=== PATIENT | male | born 1985 | race Caucasian/White ===

== ENCOUNTER 2016-12-21 16:14 | Observation (INO) ==
--- NOTE | 2016-12-21 18:36 | Emergency Department Note ---
Disposition Clinical Impression: Appendicitis Qualifiers: Appendicitis type: acute appendicitis Acute appendicitis type: unspecified acute appendicitis type Qualified Code(s): K35.80 - Unspecified acute appendicitis Disposition: Admitted As Inpatient Condition: Fair Referrals: NONE,PCP [Primary Care Provider] - Forms: ED Satisfaction Letter Time of Disposition: 20:00 General Adult HPI - General Chief complaint: ED Nausea/Vomiting/Diarrhea Stated complaint: Flu symptoms Time Seen by Provider: 12/21/16 18:35 Source: patient Limitations: no limitations Nursing Notes Reviewed: Yes Vital Signs Reviewed: Yes - History of Present Illness HPI Narrative: 31-year-old male no medical history presents with about 12 hours of nausea vomiting, abdominal discomfort. 6 out of 10 aching, right lower quadrant pain. Patient denies any cough congestion or upper respiratory symptoms. States that he feels like he has the flu, has myalgias diffusely. He states that he has multiple sick contacts that he is exposed to [employer] where he lives Onset (ago): hour(s) Radiation: abdomen Pain Severity: moderate Pain Scale: 6 Quality: aching Consistency: intermittent Improves with: nothing Worsens with: nothing Associated symptoms: Reports: loss of appetite, nausea/vomiting. Denies: confusion, chest pain, cough - Related Data Home Medications Medication Instructions Recorded Confirmed No Known Home Drugs 12/21/16 12/21/16 Allergies Allergy/AdvReac Type Severity Reaction Status Date / Time No Known Allergies Allergy Verified 12/21/16 16:43 All systems ED: reviewed and negative except as stated. Review of Systems: As Per HPI Constitutional: Reports: chills. Denies: fever Respiratory: Denies: cough, dyspnea Gastrointestinal: Reports: as per HPI, abdominal pain, nausea, vomiting. Denies : diarrhea, constipation, hematemesis Genitourinary: Denies: urgency, dysuria Musculoskeletal: Denies: back pain, neck pain Integumentary: Denies: rash Neurological: Denies: headache Psychiatric: Denies: anxiety Endocrine: Denies: fatigue Past Medical History - Past Medical History Attestation: Yes The following information was validated with the patient. Source: patient Medical history: Reports: no medical history - Social History Smoking Status: Never smoker Smokeless Tobacco Status: No Alcohol use: Reports: none Drug use: Reports: none Physical Exam Constitutional: NAD, vital signs reviewed and wnl Eyes: PERRLA, sclera anicteric ENT & Mouth: NCAT, normal external ears bilaterally, MMM Neck: normal inspection, neck is supple Resp: CTA bilaterally, no resp distress CV: RRR, no m/g/r GI: normal inspection moderate RLQ ttp, positive tenderness in McBurney's point , positive rebound. Rovsing sign, no guarding or rigidity Back: normal inspection, no tenderness to palpation Neuro: A&O3, CNII-XII grossly intact, BRADLEY MSK: no gross deformities, normal ROM UE and LE Skin: on limited exam, skin intact with no rashes or lesions - General Limitations: no limitations General appearance: alert Course Course Narrative: 31-year-old male with right lower quadrant pain nausea vomiting, CT scan noncontrast basic lab work IV fluids Zofran and Toradol reassess. - Reevaluation(s) Reevaluation #1: Abdominal CT demonstrates early appendicitis with 8mm appendix with appendicolith, paging Dr tabares. Reevaluation #2: Spoke with Dr. Tabares, he wants to be called back when the lab work comes back in I did express that the patient has exam significant for acute appendicitis with right lower quadrant tenderness to palpation. Mcburney's point tenderness and rebound tenderness. Time: 19:43 Reevaluation #3: I spoke again with Dr. Tabares, given no leukocytosis, he thinks still equivocal for appendicitis will admit started on IV Mefoxin nothing by mouth, patient to be admitted to surgical service for observation to see if he progresses, and not directly to OR. Time: 20:00 Vital Signs Temperature 98.1 F 12/21/16 16:41 Pulse Rate 51 12/21/16 16:41 Respiratory Rate 18 12/21/16 16:41 Blood Pressure 129/79 12/21/16 16:41 O2 Sat by Pulse Oximetry 97 12/21/16 16:41 Temperature 98.1 F 12/21/16 16:41 Pulse Rate 51 12/21/16 16:41 Respiratory Rate 18 12/21/16 16:41 Blood Pressure 129/79 12/21/16 16:41 O2 Sat by Pulse Oximetry 97 12/21/16 16:41 Medical Decision Making - [facility] Narrative Medical decision making narrative: 31-year-old male with right lower quadrant pain nausea vomiting anorexia, early appendicitis on CT scan right lower quadrant pain with rebound on physical exam , admitted to Dr. Tabares in stable condition, white count was not elevated, patient was placed nothing by mouth and given Mefoxin - Medical Records Medical records reviewed: Yes I reviewed the patient's medical records. - Lab Data Lab results reviewed: Yes I reviewed the patient's lab results. Result diagrams: 12/21/16 19:26 12/21/16 19:26 Lab Results 12/21/16 12/21/16 Range/Units 19:26 19:26 WBC 9.3 (4.3-11.1) K/mcL RBC 5.25 (4.19-5.50) M/mcL Hgb 14.5 (12.9-16.9) g/dL Hct 43.0 (37.5-50.1) % MCV 81.9 L (83.0-100.0) fL MCH 27.6 L (28.0-33.3) pg MCHC 33.7 (31.6-35.5) g/dL RDW 12.0 (11.5-14.5) % Plt Count 167 (140-400) K/mcL MPV 9.8 (9.4-12.4) fL Immature Gran % 0.4 (0-4) % Seg Neutrophils % 82.5 % Lymphocytes % 13.0 % Monocytes % 3.7 % Eosinophils % 0.2 % Basophils % 0.2 % Neutrophils # 7.7 (1.6-8.9) K/mcL Lymphocytes # 1.2 (0.6-4.6) K/mcL Monocytes # 0.3 (0.0-1.3) K/mcL Eosinophils # 0.0 (0.0-0.6) K/mcL Basophils # 0.0 (0.0-0.2) K/mcL Sodium 141 (136-145) mEq/L Potassium 3.7 (3.5-4.5) mEq/L Chloride 105 (98-109) mEq/L Carbon Dioxide 25 (19-29) mEq/L BUN 14 (8-26) mg/dL Creatinine 0.97 (0.72-1.25) mg/dL Est GFR ( Amer) > 60 (> 60) Est GFR (Non-Af Amer) > 60 (> 60) BUN/Creatinine Ratio 14 (6-26) Glucose 108 H (70-99) mg/dL Calculated Osmolality 293 (280-300) Calcium 10.3 (8.6-10.8) mg/dL - Radiology Data Radiology results reviewed: Yes I reviewed the patient's radiology results. Abdomen/Pelvis CT 12/21/16 18:44 IMPRESSION: Equivocal for acute appendicitis. There is an appendicolith associated with mild dilation of the appendix. This may indicate acute appendicitis in the appropriate clinical presentation. Nonobstructive nephrolithiasis. Punctate small caliceal calculi noted bilaterally. D/ / Evangelist Arteaga MD / Evangelist Arteaga MD Interpreting Provider: Evangelist Arteaga MD
[2016-12-21] MEDS ORDERED: 0.9 % Sodium Chloride 1,000 ML IVC ONE (18:44)
[2016-12-21] MEDS ORDERED: Ketorolac 15 MG/ML VIAL IVP ONE (19:13)
[2016-12-21] MEDS ORDERED: Ondansetron 4 MG/2 ML VIAL IVP ONE ×2 (19:13→20:45)
--- NOTE | 2016-12-21 19:14 | Emergency Department Note ---
START Narrative - START START: I examined this patient and my medical decision-making was reviewed with the ROTARY SLICING MACHINE OPERATOR/PA/Advanced Practice Nurse/Resident Physician. I agree with the documented findings, disposition and treatment plan as described except to the extent set forth below. ED attending note: I saw this Patient with the emergency medicine resident Dr. Arias. Please see a copy of his note for details of the H&P, evaluation, management and disposition of this emergency Department patient. We independently had [id number] contact with the patient. Briefly: A 31-year-old male [facility] presents with what was initially flu symptoms but had right lower quadrant pain on physical examination labs and CT to exclude possibility of appendicitis. Getting IV fluids for his recurrent nausea episodes. Disposition pending
[2016-12-21 19:41] LABS: Basophils % 0.2 %; Eosinophils % 0.2 %; Hemoglobin 14.5 g/dL (12.9-16.9); Immature Granulocytes % 0.4 % (0-4); Lymphocytes # 1.2 K/mcL (0.6-4.6); Mean Corpuscular HGB Conc 33.7 g/dL (31.6-35.5); Mean Corpuscular Hemoglobin 27.6 pg (28.0-33.3); Mean Corpuscular Volume 81.9 fL (83.0-100.0); Mean Platelet Volume 9.8 fL (9.4-12.4); Monocytes # 0.3 K/mcL (0.0-1.3); Monocytes % 3.7 %; Neutrophils # 7.7 K/mcL (1.6-8.9); Platelet Count 167 K/mcL (140-400); Red Blood Count 5.25 M/mcL (4.19-5.50); Segmented Neutrophils % 82.5 %
[2016-12-21 19:53] LABS: BUN/Creatinine Ratio 14 (6-26); Blood Urea Nitrogen 14 mg/dL (8-26); Calcium 10.3 mg/dL (8.6-10.8); Carbon Dioxide 25 mEq/L (19-29); Chloride 105 mEq/L (98-109); Glucose 108 mg/dL (70-99); Osmolality,Calculated 293 (280-300); Potassium 3.7 mEq/L (3.5-4.5); Sodium 141 mEq/L (136-145); eGFR For African Americans > 60 (> 60); eGFR For Non-African Americans > 60 (> 60)
[2016-12-21] MEDS ORDERED: cefOXitin 2,000 MG in D5% in Water (Mini-Bag+) 100 ML IVPB ONE (19:58)
[2016-12-21] MEDS ORDERED: *HR* Morphine 2 MG/ML SYRINGE IVP ONE (20:45)
[2016-12-21] MEDS ORDERED: *HR* OxyCODONE/APAP 5/325 TABLET PO PRN (21:55)
[2016-12-21] MEDS: 0.9 % Sodium Chloride 1,000 ML IVC SCH (22:13)
[2016-12-22] MEDS ORDERED: cefOXitin 2,000 MG in D5% in Water (Mini-Bag+) 100 ML IVPB SCH
[2016-12-22] MEDS: *HR* HYDROmorphone (PF) 1 MG/ML SYRINGE IVP PRN ×7 (02:06→21:16)
[2016-12-22 02:25] LABS: BUN/Creatinine Ratio 17 (6-26); Blood Urea Nitrogen 15 mg/dL (8-26); Calcium 9.1 mg/dL (8.6-10.8); Carbon Dioxide 23 mEq/L (19-29); Chloride 107 mEq/L (98-109); Glucose 100 mg/dL (70-99); Osmolality,Calculated 289 (280-300); Potassium 3.8 mEq/L (3.5-4.5); Sodium 139 mEq/L (136-145); eGFR For African Americans > 60 (> 60); eGFR For Non-African Americans > 60 (> 60)
[2016-12-22 03:11] LABS: Basophils % 0.4 %; Eosinophils # 0.1 K/mcL (0.0-0.6); Eosinophils % 0.8 %; Hematocrit 39.2 % (37.5-50.1); Hemoglobin 13.5 g/dL (12.9-16.9); Immature Granulocytes % 0.4 % (0-4); Lymphocytes # 2.4 K/mcL (0.6-4.6); Lymphocytes % 28.7 %; Mean Corpuscular HGB Conc 34.4 g/dL (31.6-35.5); Mean Corpuscular Hemoglobin 28.1 pg (28.0-33.3); Mean Corpuscular Volume 81.7 fL (83.0-100.0); Mean Platelet Volume 9.9 fL (9.4-12.4); Monocytes # 0.7 K/mcL (0.0-1.3); Monocytes % 8.5 %; Neutrophils # 5.2 K/mcL (1.6-8.9); Platelet Count 141 K/mcL (140-400); Red Cell Distribution Width 12.1 % (11.5-14.5); Segmented Neutrophils % 61.2 %
[2016-12-22] MEDS: cefOXitin 2,000 MG in D5% in Water (Mini-Bag+) 100 ML IVPB SCH ×3 (04:13→21:17)
[2016-12-22] MEDS: 0.9 % Sodium Chloride 1,000 ML IVC SCH ×2 (05:20→21:17)
[2016-12-22] MEDS: Ondansetron 4 MG/2 ML VIAL IVP PRN ×2 (07:58→15:00)
--- NOTE | 2016-12-22 10:15 | General Surg History&Physical ---
<Surinder Archer - Last Filed: 12/22/16 13:39> Date of Encounter: 12/22/16 Time of Encounter: 06:30 Assessment and Plan (1) Appendicitis Current Visit: Yes Status: Acute Physical exam is concerning for appendicitis Labs, including WBC are not Imaging is equivocal Given the option between antibiotics w/ observation and surgery, the patient preferred surgery to prevent future episodes from occurring Patient has been on Cefoxitin Patient has been placed NPO Written consent obtained Plan is for surgery this afternoon The assessment and plan as outlined above was discussed with the patient and/or family members who expressed understanding and agreement. All questions were answered. Qualifiers: Appendicitis type: acute appendicitis Acute appendicitis type: unspecified acute appendicitis type Qualified Code(s): K35.80 - Unspecified acute appendicitis History of Present Illness Chief complaint: Abdominal pain HPI: Mr. Taylor is a pleasant 31 year old male who presented to [facility] with 1 day of "flu symptoms." He endorses vomiting and diarrhea numerous times throughout the day. He also complains of significant nausea, back pain, and abdominal pain. The abdominal pain started low in intensity and progressed to a 7-8 out of 10. He describes the pain as sharp in quality and located in the RLQ. He denies anorexia, fever, chills, and night sweats. Past Med Surg Social Fam HX - Past Medical History Medical history: no medical history - Social History Smoking Status: Never smoker Smokeless Tobacco Status: No Alcohol use: none Drug use: none Medications and Allergies Amoxicillin/Clavulanate [Augmentin] 875 mg PO BIDWM #14 tablet 12/22/16 [Rx] Docusate Sodium [Colace] 100 mg PO BID #30 capsule 12/22/16 [Rx] Oxycodone HCl/Acetaminophen [Percocet 5-325 mg Tablet] 1 each PO Q6H #30 tablet 12/22/16 [Rx] Allergies No Known Allergies Allergy (Verified 12/21/16 16:43) Review of Systems All systems PM: A 10-system review of systems was performed and is negative for pertinent findings except as documented above in the HPI. - Constitutional no anorexia, no chills, no fever(s), no night sweats - Gastrointestinal abdominal pain (RLQ), diarrhea, vomiting, no hematochezia, no melena General Surgery Exam Initial Vital Signs Temp Pulse Resp BP Pulse Ox 98.1 F 51 18 129/79 97 12/21/16 16:41 12/21/16 16:41 12/21/16 16:41 12/21/16 16:41 12/21/16 16:41 - General physical appearance well developed, well nourished, no distress, moderate pain - Eyes normal ocular movement - ENT atraumatic, normocephalic - Neck trachea midline - Respiratory normal expansion, normal respiratory effort, clear to auscultation - Cardiovascular Cardiovascular exam: Present: RRR - Abdomen Abdomen general surgery: Present: bowel sounds present (hypoactive), soft, tender. Absent: guarding, rebound Abdominal Tenderness: Present: RLQ - Integumentary Integumentary general surgery: Present: warm and dry - Psychiatric Psychiatric general surgery: Present: speech is normal - Additional Findings Rovsing Test Positive Obturator Test Positive Results - Labs 12/22/16 02:57 12/22/16 02:07 Abnormal lab results MCV 81.7 fL (83.0-100.0) L 12/22/16 02:57 Glucose 100 mg/dL (70-99) H 12/22/16 02:07 Diabetes panel 12/22/16 Range/Units 02:07 Sodium 139 (136-145) mEq/L Potassium 3.8 (3.5-4.5) mEq/L Chloride 107 (98-109) mEq/L Carbon Dioxide 23 (19-29) mEq/L BUN 15 (8-26) mg/dL Creatinine 0.88 (0.72-1.25) mg/dL Glucose 100 H (70-99) mg/dL Calcium 9.1 (8.6-10.8) mg/dL Calcium panel 12/22/16 Range/Units 02:07 Calcium 9.1 (8.6-10.8) mg/dL Pituitary panel 12/22/16 Range/Units 02:07 Sodium 139 (136-145) mEq/L Potassium 3.8 (3.5-4.5) mEq/L Chloride 107 (98-109) mEq/L Carbon Dioxide 23 (19-29) mEq/L BUN 15 (8-26) mg/dL Creatinine 0.88 (0.72-1.25) mg/dL Glucose 100 H (70-99) mg/dL Calcium 9.1 (8.6-10.8) mg/dL Adrenal panel 12/22/16 Range/Units 02:07 Sodium 139 (136-145) mEq/L Potassium 3.8 (3.5-4.5) mEq/L Chloride 107 (98-109) mEq/L Carbon Dioxide 23 (19-29) mEq/L BUN 15 (8-26) mg/dL Creatinine 0.88 (0.72-1.25) mg/dL Glucose 100 H (70-99) mg/dL Calcium 9.1 (8.6-10.8) mg/dL All other labs normal. - Imaging CT scan - abdomen: image reviewed (Equivocal for acute appendicitis) <Ronny Lopez - Last Filed: 12/22/16 14:48> Date of Encounter: 12/22/16 History of Present Illness HPI: Mr. Taylor is a 31 year old male Review of Systems All systems PM: A 10-system review of systems was performed and is negative for pertinent findings except as documented above in the HPI. General Surgery Exam Initial Vital Signs Temp Pulse Resp BP Pulse Ox 98.1 F 51 18 129/79 97 12/21/16 16:41 12/21/16 16:41 12/21/16 16:41 12/21/16 16:41 12/21/16 16:41 Results - Labs 12/22/16 02:57 12/22/16 02:07 Abnormal lab results MCV 81.7 fL (83.0-100.0) L 12/22/16 02:57 Glucose 100 mg/dL (70-99) H 12/22/16 02:07 Diabetes panel 12/22/16 Range/Units 02:07 Sodium 139 (136-145) mEq/L Potassium 3.8 (3.5-4.5) mEq/L Chloride 107 (98-109) mEq/L Carbon Dioxide 23 (19-29) mEq/L BUN 15 (8-26) mg/dL Creatinine 0.88 (0.72-1.25) mg/dL Glucose 100 H (70-99) mg/dL Calcium 9.1 (8.6-10.8) mg/dL Calcium panel 12/22/16 Range/Units 02:07 Calcium 9.1 (8.6-10.8) mg/dL Pituitary panel 12/22/16 Range/Units 02:07 Sodium 139 (136-145) mEq/L Potassium 3.8 (3.5-4.5) mEq/L Chloride 107 (98-109) mEq/L Carbon Dioxide 23 (19-29) mEq/L BUN 15 (8-26) mg/dL Creatinine 0.88 (0.72-1.25) mg/dL Glucose 100 H (70-99) mg/dL Calcium 9.1 (8.6-10.8) mg/dL Adrenal panel 12/22/16 Range/Units 02:07 Sodium 139 (136-145) mEq/L Potassium 3.8 (3.5-4.5) mEq/L Chloride 107 (98-109) mEq/L Carbon Dioxide 23 (19-29) mEq/L BUN 15 (8-26) mg/dL Creatinine 0.88 (0.72-1.25) mg/dL Glucose 100 H (70-99) mg/dL Calcium 9.1 (8.6-10.8) mg/dL All other labs normal. - Attending Attestation I examined this patient and my medical decision-making was reviewed with the Resident Physician. I agree with the documented findings, disposition and treatment plan as described except to the extent set forth below. The patient is seen and evaluated at rest and on morning rounds. The patient had a normal white blood cell count and equivocal CAT scan of the abdomen. He was admitted for antibiotic therapy and observation. This morning his pain is more localized right quadrant. His white blood cell count remains. I discussed the risks and benefits of medical expectant therapy antibiotics and proceeding laparoscopic appendectomy for suspected acute appendicitis. The patient has selected a laparoscopic appendectomy and I think this is a reasonable approach. We will proceed with laparoscopic appendectomy later today. Ronny Lopez MD FACS
[2016-12-22] MEDS ORDERED: *HR* Promethazine 25 MG/ML VIAL ONE (11:21)
[2016-12-22] MEDS: *HR* Promethazine 25 MG/ML VIAL IVP PRN ×2 (11:23→15:07)
[2016-12-22] MEDS ORDERED: Naloxone 0.4 MG/ML INJ IVP PRN ×2 (11:43→19:18)
[2016-12-22] MEDS ORDERED: CefOXitin 1,000 MG VIAL ONE (15:43)
[2016-12-22] MEDS ORDERED: Lidocaine -MPF 4% 5 ML AMPUL ONE (16:15)
[2016-12-22] MEDS ORDERED: *HR* Midazolam HCl 2 MG/2 ML VIAL ONE (16:21)
[2016-12-22] MEDS ORDERED: *HR* FentaNYL (PF) 100 MCG/2 ML VIAL ONE (16:22)
[2016-12-22] MEDS ORDERED: Dexamethasone 4 MG/ML VIAL ONE (16:22)
[2016-12-22] MEDS ORDERED: Lidocaine -MPF 2% 2 ML VIAL ONE (16:22)
[2016-12-22] MEDS ORDERED: *HR* Rocuronium Bromide 50 MG/5 ML VIAL ONE (16:22)
[2016-12-22] MEDS ORDERED: Ondansetron 4 MG/2 ML VIAL ONE (16:22)
[2016-12-22] MEDS ORDERED: *HR* Propofol 200 MG/20 ML VIAL IVP ONE (16:22)
[2016-12-22] MEDS ORDERED: *HR* HYDROmorphone 2 MG/ML SYRINGE ONE (16:26)
[2016-12-22] MEDS ORDERED: Water for inj. (sterile) 10 ML IV ONE (16:26)
[2016-12-22] MEDS ORDERED: Neostigmine Methylsulfate 3 MG/3 ML SYRINGE ONE (16:27)
--- NOTE | 2016-12-22 16:39 | Anesthesia Evaluation PreOp ---
Date of Encounter: 12/22/16 Time of Encounter: 16:37 - Past History Planned Operation: Lap appendectomy Cardiac History: Denies any Significant Hx Pulmonary History: Denies Any Significant HX GLOBAL COORDINATOR History: Denies Any Significant HX Other Medical History: Denies Any Significant HX Anesthesia History: No Prior Anesthetic Complications, Past Anesthesia Alcohol Use: none Drug use: none Medications and Allergies Amoxicillin/Clavulanate [Augmentin] 875 mg PO BIDWM #14 tablet 12/22/16 [Rx] Docusate Sodium [Colace] 100 mg PO BID #30 capsule 12/22/16 [Rx] Oxycodone HCl/Acetaminophen [Percocet 5-325 mg Tablet] 1 each PO Q6H #30 tablet 12/22/16 [Rx] Allergies No Known Allergies Allergy (Verified 12/21/16 16:43) - Meds/Allergy Pre-op Review Medications Reviewed: Yes Allergies Reviewed: Yes Beta Blockers on Current Med List: No Anesthesia Results - Labs 12/22/16 02:57 12/22/16 02:07 Anesthesia Exam Last Vital Signs Temp 98.0 F 12/22/16 11:00 Pulse 79 12/22/16 11:00 Resp 16 12/22/16 11:00 BP 126/57 12/22/16 11:00 Pulse Ox 99 12/22/16 11:00 Weight: 91 kg NPO (# of Hours): >> 8 hrs - HEENT Pupil (Motor): Pupils equal, EOMI Mallampati: III Teeth: Normal Oral Opening: Greater than 3 - GLOBAL COORDINATOR LOC: Oriented GLOBAL COORDINATOR Motor: Normal RUE, Normal LUE, Normal RLE, Normal LLE, Normal Face - Cardiac Rhythm: Regular Murmur: None - Pulmonary Breath Sounds: bilateral Clear Respiratory Effort: Symmetrical Anesthesia Assess/Plan ASA Score: 1 Modified [place] Scale for Level of Consciousness: Cooperative, oriented, and tranquil Anesthetic Plan: General Monitoring Plan: Standard Monitors Recovery Plan: PACU
[2016-12-22] MEDS ORDERED: Ketorolac 30 MG/ML VIAL ONE (17:32)
[2016-12-22] MEDS ORDERED: Acetaminophen IV 1,000 MG/100 ML INFUS..BTL ONE (17:33)
[2016-12-22] MEDS ORDERED: *HR* Labetalol 20 MG/4 ML SYRINGE IVP PRN (17:36)
[2016-12-22] MEDS ORDERED: *HR* Promethazine 25 MG/ML VIAL IVP PRN ×2 (17:36→19:18)
[2016-12-22] MEDS ORDERED: Ondansetron 4 MG/2 ML VIAL IVP ONE (17:36)
[2016-12-22] MEDS ORDERED: Dexamethasone 4 MG/ML VIAL IVP ONE (17:36)
[2016-12-22] MEDS ORDERED: *HR* OxyCODONE/APAP 10/325 TABLET PO PRN (18:06)
--- NOTE | 2016-12-22 18:09 | Operative Note ---
Date of procedure: 12/22/16 Pre-op diagnosis: Acute appendicitis Post-op diagnosis: same Procedure: Laparoscopic appendectomy Anesthesia: ESTER Surgeon: Ronny Lopez Estimated blood loss (cc): 25 Specimen: Appendix Condition: stable Disposition: PACU Procedure in Detail: After informed consent the patient is taking major operating suite placed in supine position given adequate general endotracheal anesthesia. The abdomen was prepped and draped in sterile fashion utilizing ChloraPrep standard draping techniques. Timeout was taken patient was identified. He a vertical midline incision below the umbilicus and dissected down the level of fascia. 2 traction stitches of 0 Vicryl placed. A Emmanuel trocar was placed in the abdomen and the abdomen was insufflated to 15 mmHg pressure CO2. The appendix was chronically inflamed and firm however there was no purulence or pus. A 5 mm trochars placed in suprapubic area and a 12 mm trocar in the right upper quadrant. The appendix was dissected free from surrounding scar tissue. I was able to develop the window between the mesoappendix and base of the cecum. I divided the base the cecum with a gastrointestinal load. I divided the mesoappendix with a vascular load. The staple line on the mesoappendix had 2 pulsatile areas of arterial bleeding. Each of these were controlled with a 10 mm clip electric meter setter. There was no bleeding after control of these vessels. I removed the appendix in a specimen bag through the umbilical port. Replaced the umbilical port and irrigated the field with copious amounts of antibiotic containing solution. There is no evidence of bleeding all staple lines were intact fascia was closed with 0 Vicryl skin with 2-0 Vicryl and 4-0 Vicryl.
--- NOTE | 2016-12-22 18:31 | Anesthesia Evaluation Post Op ---
Date of Encounter: 12/22/16 Time of Encounter: 18:31 - Vital Signs Vital Signs: Last Vital Signs Temp 97.2 F L 12/22/16 18:05 Pulse 50 12/22/16 18:25 Resp 13 12/22/16 18:25 BP 134/87 12/22/16 18:25 Pulse Ox 100 12/22/16 18:25 - Lungs Lungs: Clear Ascult./Percussion - Airway Airway: Non-obstructed - Cardiovascular Regular Rate - Mental Status Mental Status: Alert & Oriented, Answers Appropriately - Pain Pain Scale: 5 - Nausea Vomiting Nausea Vomiting: Responds to treatment with IV Meds - Hydration Hydration: NPO - Discharge PostOp Status: Transfer Patient to floor
[2016-12-22] MEDS ORDERED: Ondansetron 4 MG/2 ML VIAL IVP PRN (19:18)
[2016-12-23] MEDS: *HR* HYDROmorphone (PF) 1 MG/ML SYRINGE IVP PRN (01:48)
[2016-12-23] MEDS: *HR* OxyCODONE/APAP 5/325 TABLET PO PRN ×2 (06:35→12:34)
[2016-12-23] MEDS: cefOXitin 2,000 MG in D5% in Water (Mini-Bag+) 100 ML IVPB SCH (06:38)
[2016-12-23] MEDS: 0.9 % Sodium Chloride 1,000 ML IVC SCH (09:33)
[2016-12-23 09:38] LABS: Basophils % 0.1 %; Eosinophils % 0.1 %; Hematocrit 38.8 % (37.5-50.1); Hemoglobin 13.3 g/dL (12.9-16.9); Immature Granulocytes % 0.3 % (0-4); Lymphocytes # 1.7 K/mcL (0.6-4.6); Lymphocytes % 17.2 %; Mean Corpuscular HGB Conc 34.3 g/dL (31.6-35.5); Mean Corpuscular Hemoglobin 28.1 pg (28.0-33.3); Mean Platelet Volume 9.5 fL (9.4-12.4); Monocytes # 0.6 K/mcL (0.0-1.3); Neutrophils # 7.7 K/mcL (1.6-8.9); Platelet Count 166 K/mcL (140-400); Red Blood Count 4.73 M/mcL (4.19-5.50); Red Cell Distribution Width 11.8 % (11.5-14.5); Segmented Neutrophils % 76.3 %
[2016-12-23 11:07] VITALS: BP 153/77
--- NOTE | 2016-12-23 11:21 | Discharge Summary ---
<Surinder Archer - Last Filed: 12/23/16 17:53> Date of Encounter: 12/23/16 Time of Encounter: 11:11 - Discharge Diagnosis (1) Appendicitis Priority: Primary Status: Acute Qualifiers: Appendicitis type: acute appendicitis Acute appendicitis type: unspecified acute appendicitis type Qualified Code(s): K35.80 - Unspecified acute appendicitis - Discharge Medications Prescriptions: Ibuprofen [Motrin] 600 mg PO Q6HR PRN #180 tablet PRN Reason: Pain Amoxicillin/Clavulanate [Augmentin] 875 mg PO BIDWM #6 tablet Home Medications: Amoxicillin/Clavulanate [Augmentin] 875 mg PO BIDWM #6 tablet 12/23/16 [Rx] Ibuprofen [Motrin] 600 mg PO Q6HR PRN #180 tablet 12/23/16 [Rx] Allergies/Adverse Reactions: Allergies No Known Allergies Allergy (Verified 12/21/16 16:43) General Surgery Exam Initial Vital Signs Temp Pulse Resp BP Pulse Ox 98.1 F 51 18 129/79 97 12/21/16 16:41 12/21/16 16:41 12/21/16 16:41 12/21/16 16:41 12/21/16 16:41 - General physical appearance well developed, well nourished, no distress - Eyes normal ocular movement - ENT atraumatic, normocephalic - Neck trachea midline - Respiratory normal expansion, normal respiratory effort, clear to auscultation - Cardiovascular Cardiovascular exam: Present: RRR - Abdomen Abdomen general surgery: Present: bowel sounds present, soft, non tender - Incision Incision: Present: clean and dry, intact - Integumentary Integumentary general surgery: Present: warm and dry - Psychiatric Psychiatric general surgery: Present: appropriate, speech is normal Date of admission: 12/21/16 20:15 Primary care physician: PCP NONE Consults: 12/22/16 08:04 Consult to Firearms Specialist [CONS] Routine Reason for SW Consult: Patient from [facility]; plan to return to complete stay Discharging clinician: Surinder Archer Anticipated date of discharge: 12/23/16 - Patient Status Disposition: Home, Self-Care Condition: Good Functional capacity at discharge: independent ambulation Overall status at discharge: patient is progressing back to baseline - Discharge Instructions Instructions: Appendicitis (DC), Laparoscopic Appendectomy (DC) Follow Up With: Ronny Lopez MD [Partnered Physician] - Forms: Work/School Release Additional Instructions: f/u in [address] Lopez Do not return to work until cleared by Dr. Lopez No heavy lifting of more than 15 lbs. - Diet and Activity Activity: increase activity as tolerated, resume usual activities as tolerated ( no heavy lifting >15 lbs) Diet: advance to your usual diet - Hospital Course Hospital course: Mr. Taylor is a 31 year old male who presented to [facility] on the evening of 12/21 with symptoms of appendicitis, including abdominal pain, nausea, diarrhea, and vomiting. Physical exam also indicated appendicitis, though CT Abd/Pelv was equivocal and WBC was negative. The patient elected to undergo laparoscopic appendectomy, which was performed without complication by Dr. Lopez on 12/22. The patient has improved since then, and has been tolerating a regular diet and progressing toward baseline. Time spent discussing smoking cessation with patient: 3 to 10 minutes - Time Spent with Patient Total time spent providing and/or coordinating discharge services: Less than 30 minutes Labs on day of discharge: Labs from last 24 hours 12/23/16 09:22 WBC 10.1 RBC 4.73 Hgb 13.3 Hct 38.8 MCV 82.0 L MCH 28.1 MCHC 34.3 RDW 11.8 Plt Count 166 MPV 9.5 Immature Gran % 0.3 Seg Neutrophils % 76.3 Lymphocytes % 17.2 Monocytes % 6.0 Eosinophils % 0.1 Basophils % 0.1 Neutrophils # 7.7 Lymphocytes # 1.7 Monocytes # 0.6 Eosinophils # 0.0 Basophils # 0.0 <Naeem Pickett - Last Filed: 12/23/16 22:36> Date of Encounter: 12/23/16 General Surgery Exam Initial Vital Signs Temp Pulse Resp BP Pulse Ox 98.1 F 51 18 129/79 97 12/21/16 16:41 12/21/16 16:41 12/21/16 16:41 12/21/16 16:41 12/21/16 16:41 Date of admission: 12/21/16 20:15 Primary care physician: PCP NONE Consults: 12/22/16 08:04 Consult to Firearms Specialist [CONS] Routine Reason for SW Consult: Patient from [facility]; plan to return to complete stay - Hospital Course Hospital course: Mr. Taylor is a 31 year old male - Time Spent with Patient Total time spent providing and/or coordinating discharge services: Labs on day of discharge: Labs from last 24 hours 12/23/16 09:22 WBC 10.1 RBC 4.73 Hgb 13.3 Hct 38.8 MCV 82.0 L MCH 28.1 MCHC 34.3 RDW 11.8 Plt Count 166 MPV 9.5 Immature Gran % 0.3 Seg Neutrophils % 76.3 Lymphocytes % 17.2 Monocytes % 6.0 Eosinophils % 0.1 Basophils % 0.1 Neutrophils # 7.7 Lymphocytes # 1.7 Monocytes # 0.6 Eosinophils # 0.0 Basophils # 0.0 - Attending Attestation I examined this patient and my medical decision-making was reviewed with the Resident Physician. I agree with the documented findings, disposition and treatment plan as described except to the extent set forth below. I reviewed the above assessment and evaluation with the resident and agree with the above plan.
== END 2016-12-23 13:49 | disposition home or self-care (01) ==
LOC: EMEROO 16:14 → 3ANU 16:14
PROVIDERS: ADMIT Surgery; ATTEND Surgery